=== PATIENT | male | born 1985 | race Caucasian/White ===

== ENCOUNTER 2020-01-18 11:52 | Emergency (ER) | payer BC, MEDICAID, OTHER ==
[2020-01-18] MEDS ORDERED: Lidocaine 1% 20 ML MDV INFILT ONE (11:53)
--- NOTE | 2020-01-18 12:20 | EDM.PDOC ---
ED HPI GENERAL MEDICAL PROBLEM - General Chief Complaint: Head Injury Time Seen by Provider: 01/18/20 12:20 Source of Information: Reports: Patient History Limitations: Reports: No Limitations - History of Present Illness INITIAL COMMENTS - FREE TEXT/NARRATIVE: 34-year-old male who states at approximately 11:30 AM today he was working on a conveyor belt for a feed truck and the chain that turns the conveyor belt broke and one of the links struck him over his left face. This link of the chain is a piece of metal that is about 15 cm in diameter. He had no loss of consciousness. He did have some bleeding from areas both in the infraorbital and the supraorbital area on the left side. No neck or back pain. He had reported some mild blurry vision initially but that has resolved. No arm or leg weakness. He rates the pain as a 6/10. It is a sharp and sore pain. It does not radiate. There are no other associated signs or symptoms. There are no other modifying factors. 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 (see below) (Nothing) head Pain Score (Numeric/FACES): 6 - Related Data Allergies Allergy/AdvReac Type Severity Reaction Status Date / Time No Known Allergies Allergy Verified 01/18/20 14:07 Home Meds: Home Meds Cephalexin [Keflex] 500 mg PO QID #40 capsule 03/25/15 [Rx] Hydrocodone/Acetaminophen [Paul 5-325 Tablet] 1 each PO Q4H PRN #16 tablet 03/25/15 [Rx] Past Medical History Musculoskeletal History: Reports: Back Pain, Chronic Neurological History: Reports: Concussion, Migraines - Infectious Disease History Infectious Disease History: Reports: Chicken Pox - Past Surgical History HEENT Surgical History: Reports: Oral Surgery (IMF of jaw for fracture), Tonsillectomy Neurological Surgical History: Reports: Lumbar Spine, Spinal Fusion (Lumbar spinal fusion) Musculoskeletal Surgical History: Reports: ORIF (Of left hand) Social & Family History - Tobacco Use Tobacco Use Status *Q: Current Every Day Tobacco User - Alcohol Use Alcohol Use History: No - Recreational Drug Use Recreational Drug Use: Yes Drug Use in Last 12 Months: Yes Recreational Drug Type: Reports: Marijuana/Hashish - Living Situation & Occupation Living situation: Reports: Single Occupation: Employed ED ROS GENERAL - Review of Systems Review Of Systems: See Below Constitutional: Reports: No Symptoms HEENT: Reports: No Symptoms Respiratory: Reports: No Symptoms Cardiovascular: Reports: No Symptoms Endocrine: Reports: No Symptoms GI/Abdominal: Reports: No Symptoms : Reports: No Symptoms Musculoskeletal: Reports: No Symptoms Skin: Reports: Wound (Lacerations to left face.) Neurological: Reports: No Symptoms Hematologic/Lymphatic: Reports: No Symptoms Immunologic: Reports: Other (Last tetanus immunization was in 2016, so he is up-to-date.) ED EXAM, HEAD INJURY - Physical Exam Exam: See Below Exam Limited By: Uncooperative General Appearance: Alert, WD/WN, Mild Distress, Other (Nontoxic appearing) Head: Normocephalic, Facial Lacerations, Facial Swelling, Other (Lacerations 2 to left inferolateral area. One of them is 2.5 cm and the other is 3.5 cm. T- shaped laceration to the left medial eyebrow which is 5 centimeters in length total. Laceration to left forehead that is 1.5 cm in length.) Nexus Criteria: Painful Distraction Injuries Eyes: Bilateral Eye: EOMI, Normal Inspection, PERRL Ears: Normal External Exam, Hearing Grossly Normal Nose: Normal Inspection, Normal Mucousa, No Blood, Other (No septal hematoma.) Throat/Mouth: Normal Inspection, Normal Oropharynx, Normal Voice, No Airway C ompromise Neck: Non-Tender, Normal Alignment, Normal Inspection Respiratory: No Respiratory Distress, Lungs Clear, Normal Breath Sounds, No Accessory Muscle Use, Chest Non-Tender Cardiovascular: Normal Peripheral Pulses, Regular Rate, Rhythm, No Murmur GI/Abdominal Exam: Normal Bowel Sounds, Soft, Non-Tender, No Mass Back Exam: Normal Inspection, Full Range of Motion Extremities: Normal Inspection, Normal Range of Motion, Non-Tender, No Pedal Gunnar ma, Normal Capillary Refill Neurologic: injection press operator II-XII nml As Tested, No Motor/Sensory Deficits, Alert, Normal Mood/Affect, Oriented x 3 Skin: Normal Color, Warm/Dry - Hayden Coma Score Best Eye Response (Mar Lin): (4) Open Spontaneously Best Verbal Response (Mar Lin): (5) Oriented Best Motor Response (Mar Lin): (6) Obeys Commands Hayden Total: 15 ED LACERATION/WOUND & BOBBY PROC - Laceration/Wound Repair Left Face Lac/wound length in cm: 6 (2 infraorbital lacerations. One is 2.5 cm in length and the other is 3.5 cm in length) Appearance: Subcutaneous Distal NVT: Neuro & Vascular Intact Anesthetic Type: Local Local Anesthesia - Lidocaine (Xylocaine): 1% Plain Local Anesthetic Volume: 5cc (Good anesthesia and no complications.) Skin Prep: Saline Saline irrigation (cc's): 500 Exploration/Debridement/Repair: Wound Explored, No Foreign Material Found Closed with: Sutures Suture Size: 5-0 # of Sutures: 14 Suture Type: Prolene, Interrupted (Combination of running and interrupted simple sutures.), Running, Simple Sterile Dressing Applied: Nurse Tetanus Status Addressed: Other (Patient was up-to-date on tetanus immunization.) Left Forehead Lac/wound length in cm: 6.5 (1 T-shaped laceration over the medial left eyebrow that is 5 centimeters in length and another laceration over left lateral forehead that 1.5 cm) Appearance: Subcutaneous Distal NVT: Neuro & Vascular Intact Anesthetic Type: Local Local Anesthesia - Lidocaine (Xylocaine): 1% Plain Local Anesthetic Volume: 5cc (Good anesthesia and no complications.) Skin Prep: Saline Saline irrigation (cc's): 500 Exploration/Debridement/Repair: Wound Explored, No Foreign Material Found Closed with: Sutures Suture Size: 5-0 # of Sutures: 13 Suture Type: Prolene, Interrupted (Combination of simple interrupted and simple running sutures.), Running, Simple Sterile Dressing Applied: Nurse Tetanus Status Addressed: Other (Patient up-to-date on tetanus immunization.) Course - Vital Signs Last Recorded V/S: Last Vital Signs Temp 36.6 C 01/18/20 14:49 Pulse 70 01/18/20 14:49 Resp 17 01/18/20 14:49 BP 140/90 01/18/20 14:49 Pulse Ox 99 01/18/20 14:49 - Orders/Labs/Meds Orders: Active Orders 24 hr Category Date Time Status Cervical Spine wo Cont [CT] Stat Exams 01/18/20 12:42 Taken Head wo Cont [CT] Stat Exams 01/18/20 12:42 Taken Max Facial Sinus wo Cont [CT] Stat Exams 01/18/20 12:42 Taken - Radiology Interpretation Free Text/Narrative:: CT scan of head showed no acute abnormality per the radiologist. CT scan of face showed no fracture or the radiologist. CT scan of cervical spine showed no fracture per the radiologist. - Re-Assessments/Exams Free Text/Narrative Re-Assessment/Exam: 01/18/20 14:30: Patient with negative CT scans. The wounds on the infraorbital, supraorbital and forehead were cleaned and sutured. He tolerated this well without any apparent complications. Appropriate supportive dressings with bacitracin were applied by the nursing staff. Suture removal in 7 days. Precautions and reasons for return to the emergency department were discussed with the patient while he was in the emergency department ever detailed in the patient's discharge instructions. Departure - Departure Time of Disposition: 14:40 Disposition: Home, Self-Care 01 Condition: Good (Improved) Clinical Impression: Head contusion Qualifiers: Encounter type: initial encounter Contusion of head detail: unspecified part of head Qualified Code(s): S00.93XA - Contusion of unspecified part of head, initial encounter Facial contusion Qualifiers: Encounter type: initial encounter Qualified Code(s): S00.83XA - Contusion of other part of head, initial encounter Cheek laceration Qualifiers: Encounter type: initial encounter Laterality: left Qualified Code(s): S01.412A - Laceration without foreign body of left cheek and temporomandibular area, initial encounter Laceration of eyebrow and forehead Qualifiers: Encounter type: initial encounter Laterality: left Qualified Code(s): S01.81XA - Laceration without foreign body of other part of head, initial encounter - Discharge Information Instructions: Facial or Scalp Contusion, [id number], Head Injury, Adult, [id number], Sutures, Sravanthi, or Adhesive Wound Closure, [id number] Referrals: Rancho Munoz MD [Primary Care Provider] - Forms: ED Department Discharge Additional Instructions: The CAT scans of your head, face and neck showed no fractures or bleeding. Do not get the wound wet for 3 days. You may use a damp cloth to clean off the bacitracin twice daily. After 3 days, you may get the wounds wet but do not immerse the wounds in water. Suture removal in 7 days. Apply ice packs intermittently to the bruised areas over the next 2 days. Keep your head elevated as much as possible for the next 2-3 days. You can take ibuprofen and Tylenol as needed for pain. Back to the emergency department for worsening headache, worsening vision, unrelenting vomiting, increased redness in the area, increased swelling or any other concerning sign or symptom. - My Orders Last 24 Hours: My Active Orders 01/18/20 12:42 Cervical Spine wo Cont [CT] Stat Head wo Cont [CT] Stat Max Facial Sinus wo Cont [CT] Stat - Assessment/Plan Last 24 Hours: My Active Orders 01/18/20 12:42 Cervical Spine wo Cont [CT] Stat Head wo Cont [CT] Stat Max Facial Sinus wo Cont [CT] Stat
[2020-01-18 18:05] VITALS: BP 140/90; PULSE 70
== END 2020-01-18 14:53 | disposition home or self-care (01) ==
LOC: FB.ED 11:52
DX: S01.412A Laceration without foreign body of left cheek and temporomandibular area, initial encounter (principal); S01.112A Laceration without foreign body of left eyelid and periocular area, initial encounter; S01.81XA Laceration without foreign body of other part of head, initial encounter; F17.200 Nicotine dependence, unspecified, uncomplicated; W22.8XXA Striking against or struck by other objects, initial encounter
CPT/HCPCS: 12004; 70450; 70486; 72125; 99283; J2001

== ENCOUNTER 2023-08-11 15:21 | Emergency (ER) | payer OTHER, BC ==
[2023-08-11] MEDS: ceFAZolin 1 GM Vial IVPUSH ONE (15:44)
[2023-08-11] MEDS: ceFAZolin 1 GM Vial IM ONE (15:44)
[2023-08-11] MEDS: Sodium Chloride 0.9% 10 ML Syringe FLUSH PRN (15:46)
[2023-08-11] MEDS: Diphtheria,Pertussis(Acell),Tetanus Vaccine 0.5 ML Syringe IM ONE (15:47)
[2023-08-11] MEDS: Iopamidol 755 Mg/ML 100 ML Bottle IV SCH (16:51)
[2023-08-11] MEDS: HYDROmorphone 2 MG/ML SDV IVPUSH ONE (17:49)
[2023-08-11 19:00] VITALS: BP 126/81; PULSE 81
== END 2023-08-11 18:55 | disposition home or self-care (01) ==
LOC: FB.ED 15:21
DX: S71.111A Laceration without foreign body, right thigh, initial encounter (principal); Z79.899 Other long term (current) drug therapy; Z23 Encounter for immunization; W31.2XXA Contact with powered woodworking and forming machines, initial encounter; Y93.89 Activity, other specified
CPT/HCPCS: 12002; 73706; 74174; 90471; 90715; 96374; 96375; 99284; J0690; J1170; J3490; Q9967; 73552-RT